=== PATIENT | male | born 1990 | race Caucasian/White ===

== ENCOUNTER 2018-01-14 10:34 | Emergency (ER) | payer MEDICAID ==
[~2018-01-14] VITALS: Ht 190.5 cm; Wt 81.8 kg
[2018-01-14 10:38] VITALS: BP 122/70
[2018-01-14] MEDS ORDERED: PRED20TA PO (10:56)
[2018-01-14] MEDS ORDERED: triamcinolone acetonide 40mg/ml inj IM ONE (11:00)
== END 2018-01-14 11:11 | disposition home or self-care (01) ==
LOC: ER 10:35
DX: L23.7 Allergic contact dermatitis due to plants, except food (principal); F12.90 Cannabis use, unspecified, uncomplicated; Z88.0 Allergy status to penicillin; Z88.1 Allergy status to other antibiotic agents
CPT/HCPCS: 96372; 99283; J3301